=== PATIENT | female | born 2000 | race Caucasian/White ===

== ENCOUNTER 2021-01-03 18:04 | Emergency (ER) | payer BC ==
[~2021-01-03] VITALS: Ht 154.9 cm; Wt 63.5 kg
[2021-01-03 19:50] VITALS: BP 127/77
== END 2021-01-03 19:50 | disposition home or self-care (01) ==
LOC: ER 18:04
DX: S01.01XA Laceration without foreign body of scalp, initial encounter (principal); V89.2XXA Person injured in unspecified motor-vehicle accident, traffic, initial encounter; Y93.89 Activity, other specified; Y92.89 Other specified places as the place of occurrence of the external cause; Y99.8 Other external cause status